=== PATIENT | female | born 1935 | race Caucasian/White ===

== ENCOUNTER 2017-07-28 22:57 | Inpatient (IN) | payer OTHER ==
[~2017-07-28] VITALS: Ht 165.1 cm; Wt 45.5 kg
[~2017-07-28 22:57] MED LIST: ACET325 PO; ALBU2.5V5 INH; ALBU3IS INH; ALL DAY ALLERGY10 M1 PO; AMIT50; ASPI325 PO; Advair Hfa 230-12 GM INH; Augmentin 875-1 EACH PO; Bisac-Evac10 MG PR; CHOL10002 PO; CLOP75 PO; DOC250 PO; DULERA 200 MCG/13 GM INH; FISH1000 PO; FOLI400 PO; GAVILAX17 GM PO; HTN MED; K-Dur10 MEQ PO; LANOXIN125 MCG PO; LEVO750 PO; LORA1 PO; LOVA40 PO; Lasix20 MG PO; Loperamide2 MG PO; METO100 PO; METO50 PO; MIRALAX17 GM PO; MIRT15 PO; MS Contin15 MG PO; NITR.4SL SL; PANT40 PO; PROM25 PO; RISP.25 PO; ROXICODONE5 MG PO; SENN187 PO; SERT50 PO; STIOLTO RESPIMAT4 GM INH; Super B Comple150 MG PO; TORSE20 PO; TRAZ50 PO; Zofran Odt8 MG SL; [UNRECOGNIZED DRUG - OTHER]
[2017-07-28 23:10] LABS: BASOPHILS ABSOLUTE AUTO 0.04 K/mm3 (0.00-0.23); BASOPHILS PERCENT AUTO 0 % (0-2); EOSINOPHILS ABSOLUTE AUTO 0.15 K/mm3 (0.00-0.68); EOSINOPHILS PERCENT AUTO 1 % (0-6); Hematocrit 41.7 % (33.0-51.0); Hemoglobin 12.4 g/dL (11.5-16.0); IMMATURE GRAN ABSOLUTE AUTO 0.13 K/mm3 (0.00-0.10); IMMATURE GRAN PERCENT AUTO 1 % (0-1); LYMPHOCYTES ABSOLUTE AUTO 1.39 K/mm3 (0.84-5.20); LYMPHOCYTES PERCENT AUTO 8 % (21-46); MONOCYTES ABSOLUTE AUTO 0.66 K/mm3 (0.16-1.47); MONOCYTES PERCENT AUTO 4 % (4-13); Mean Corpuscular HGB 25.5 pg (26.0-34.0); Mean Corpuscular HGB Conc 29.7 g/dL (31.5-36.5); Mean Corpuscular Volume 86 fL (80-100); Mean Platelet Volume 9.7 fL (9.1-12.4); NEUTROPHILS ABSOLUTE AUTO 15.67 K/mm3 (1.96-9.15); NEUTROPHILS PERCENT AUTO 87 % (41-73); Platelet Count 360 K/mm3 (150-400); RDW Coefficient Variation 18.4 % (11.7-14.2); RDW Standard Deviation 58.3 fL (35.1-46.3); Red Blood Cell Count 4.86 M/mm3 (3.80-5.20); White Blood Cell Count 18.04 K/mm3 (4.00-11.30)
[2017-07-28 23:37] LABS: Influenza A Positive (NEGATIVE)
[2017-07-28 23:38] LABS: Influenza B Negative (NEGATIVE)
[2017-07-29 00:43] LABS: Base Excess Venous 1.7 mmol/L; PCO2 Venous 70.2 mmHg (38-42); PO2 Venous 49.9 mmHg (38-42); pH Blood Venous 7.23 (7.34-7.37)
[2017-07-29 01:16] LABS: Alanine Aminotransfer (ALT/SGP 18 U/L (12-78); Albumin, Blood 3.5 g/dL (3.4-5.0); Albumin/Globulin Ratio 0.8 (0.8-1.8); Alk Phos 121 U/L (50-136); Anion Gap 9 mmol/L (6-16); Aspartate Aminotrans (AST/SGOT 28 U/L (12-37); Bilirubin, Total 0.7 mg/dL (0.1-1.0); Blood Urea Nitrogen 23 mg/dL (8-24); Bun/Creatinine Ratio 28.1 (12.0-20.0); CO2, Blood 30 mmol/L (21-32); Calcium, Blood 9.1 mg/dL (8.5-10.1); Chloride, Blood 103 mmol/L (98-108); Creatinine, Blood 0.82 mg/dL (0.40-1.00); Globulin, Blood 4.2 g/dL (2.2-4.0); Glomerular Filtration Rate >60 (60-); Glucose, Blood 172 mg/dL (70-99); Potassium, Blood 3.9 mmol/L (3.5-5.5); Sodium, Blood 142 mmol/L (136-145); Total Protein, Blood 7.7 g/dL (6.4-8.2)
[2017-07-29 01:19] LABS: Troponin I 0.559 ng/mL (0.000-0.040)
[2017-07-29 01:38] LABS: Magnesium, Blood 4.4 mg/dL (1.6-2.4)
[2017-07-29 04:16] LABS: PCO2 Arterial 60.1 mmHg (35-45); PO2 Arterial 89.1 mmHg (80-100); pH Blood Arterial 7.29 (7.35-7.45)
[2017-07-29] MEDS ORDERED: MORP20L PO (09:04)
[2017-07-29] MEDS ORDERED: CALCIUM ANTACI200 MG PO (09:39)
[2017-07-29] MEDS ORDERED: HYDCOR2.5C PR (09:44)
[2017-07-29] MEDS ORDERED: HYOS.125 SL (09:47)
[2017-07-29] MEDS ORDERED: LOPE2C PO (09:48)
[2017-07-29] MEDS ORDERED: MIRALAX17 GM PO (09:50)
[2017-07-30 07:54] LABS: Source, Urine Clean Catch
[2017-07-30 08:10] LABS: Bilirubin, Urine Neg (Neg); Blood, Urine 1+ (Neg); Glucose Qualitative, Urine Neg (Neg); Ketones, Urine Neg (Neg); Leukocyte Esterase, Urine 1+ (Neg); Nitrite, Urine Neg (Neg); Protein, Urine 2+ (Neg); Specific Gravity, Urine 1.025 (1.003-1.022); Urobilinogen, Urine NORM (Normal)
[2017-07-30 08:21] LABS: Appearance, Urine Clear (Clear); Color, Urine Yellow (P-Yellow)
[2017-07-30 08:23] LABS: Bacteria Few /hpf; Red Blood Cells, Urine 0-2 /hpf (0-2); Squamous Epithelial Cells Mod /hpf (Few)
[2017-07-30 08:49] LABS: BASOPHILS ABSOLUTE AUTO 0.01 K/mm3 (0.00-0.23); BASOPHILS PERCENT AUTO 0 % (0-2); EOSINOPHILS PERCENT AUTO 0 % (0-6); Hematocrit 36.6 % (33.0-51.0); Hemoglobin 10.9 g/dL (11.5-16.0); IMMATURE GRAN ABSOLUTE AUTO 0.04 K/mm3 (0.00-0.10); IMMATURE GRAN PERCENT AUTO 0 % (0-1); LYMPHOCYTES PERCENT AUTO 7 % (21-46); MONOCYTES ABSOLUTE AUTO 0.54 K/mm3 (0.16-1.47); MONOCYTES PERCENT AUTO 4 % (4-13); Mean Corpuscular HGB 25.5 pg (26.0-34.0); Mean Corpuscular HGB Conc 29.8 g/dL (31.5-36.5); Mean Corpuscular Volume 86 fL (80-100); Mean Platelet Volume 9.9 fL (9.1-12.4); NEUTROPHILS ABSOLUTE AUTO 11.25 K/mm3 (1.96-9.15); NEUTROPHILS PERCENT AUTO 88 % (41-73); Platelet Count 262 K/mm3 (150-400); RDW Coefficient Variation 18.3 % (11.7-14.2); RDW Standard Deviation 57.7 fL (35.1-46.3); Red Blood Cell Count 4.27 M/mm3 (3.80-5.20); White Blood Cell Count 12.74 K/mm3 (4.00-11.30)
[2017-07-30 08:55] LABS: Bun/Creatinine Ratio 45.2 (12.0-20.0); Calcium, Blood 8.8 mg/dL (8.5-10.1); Creatinine, Blood 0.97 mg/dL (0.40-1.00); Potassium, Blood 4.9 mmol/L (3.5-5.5)
[2017-08-02] MEDS ORDERED: Tamiflu30 MG PO (13:32)
[2017-08-02] MEDS ORDERED: LEVFLO500 PO (13:33)
[2018-06-27] MEDS ORDERED: ASPI81CH PO (12:17)
[2018-06-27] MEDS ORDERED: ALBU90OI INH (12:51)
[2018-06-27] MEDS ORDERED: ONDA4 PO (12:52)
[2018-06-27] MEDS ORDERED: BENEFIBER1 EAC1 PO (12:53)
[2018-06-27] MEDS ORDERED: NITR.4SL SL (14:17)
[2018-06-27] MEDS ORDERED: ACET325 PO (14:17)
[2018-06-27] MEDS ORDERED: LOPE2C PO (14:18)
[2018-06-28] MEDS ORDERED: FURO20 PO (14:10)
[2018-06-28] MEDS ORDERED: Micro-K10 MEQ PO (14:13)
[2018-06-28] MEDS ORDERED: LEVFLO500 PO (14:16)
[2018-06-28] MEDS ORDERED: PRED20 PO (14:17)
== END 2017-08-02 16:24 | disposition home health service (06) | DRG 871 ==
LOC: ER 22:57 → PCU 07-29 01:23 → ERHOLD 07-29 01:23 → ICUW 07-29 08:21 → PCU 07-30 07:51
PROVIDERS: Emergency Medicine; Family Medicine; Internal Medicine
PROC: 5A09357 Assistance with Respiratory Ventilation, Less than 24 Consecutive Hours, Continuous Positive Airway Pressure (ICD-10-PCS; principal; 2017-07-29)
DX: A41.9 Sepsis, unspecified organism (principal); J96.21 Acute and chronic respiratory failure with hypoxia; I21.A1 Myocardial infarction type 2; I50.33 Acute on chronic diastolic (congestive) heart failure; J10.01 Influenza due to other identified influenza virus with the same other identified influenza virus pneumonia; J96.22 Acute and chronic respiratory failure with hypercapnia; E87.2 Acidosis; R65.20 Severe sepsis without septic shock; I25.119 Atherosclerotic heart disease of native coronary artery with unspecified angina pectoris; I11.0 Hypertensive heart disease with heart failure; E11.9 Type 2 diabetes mellitus without complications; I48.91 Unspecified atrial fibrillation; Z51.5 Encounter for palliative care; R91.8 Other nonspecific abnormal finding of lung field; E78.5 Hyperlipidemia, unspecified; Z66 Do not resuscitate; Z99.81 Dependence on supplemental oxygen; Z95.5 Presence of coronary angioplasty implant and graft; Z88.5 Allergy status to narcotic agent; Z88.8 Allergy status to other drugs, medicaments and biological substances; Z79.02 Long term (current) use of antithrombotics/antiplatelets; Z79.82 Long term (current) use of aspirin; Z79.899 Other long term (current) drug therapy; Z87.891 Personal history of nicotine dependence
CPT/HCPCS: 36415; 36600; 71045; 80048; 80053; 81001; 82803; 83605; 83735; 83880; 84484; 85025; 87040; 87070; 87086; 87205; 87804; 93005; 93010; 94640; 94645; 94660; 94667; 94760; 94762; 96365; 96367; 96375; 99285; J1940; J1956; J2930; J3475; J3480; J7605

== ENCOUNTER → 2017-08-24 | Outpatient (CLI) | payer OTHER ==
[~2017-08-24] MED LIST changes: +ALBU90OI INH; +ASPI81CH PO; +BENEFIBER1 EAC1 PO; +CALCIUM ANTACI200 MG PO; +CEFD300 PO; +FURO20 PO; +HYDCOR2.5C PR; +HYDR1TAB94 PO; +HYOS.125 SL; +Ipratr-Albuterol3 ML INH; +LEVFLO500 PO; +LIDOCAINE-HC 3-17 GM RC; +LOPE2C PO; +MORP20L PO; +Micro-K10 MEQ PO; +Milk Of Ma400 MG/5 M PO; +ONDA4 PO; +PRED20 PO; +Tamiflu30 MG PO
== END | disposition home or self-care (01) ==
LOC: OLS 15:34
DX: S81.802A Unspecified open wound, left lower leg, initial encounter (principal)
CPT/HCPCS: 87070; 87075; 87077; 87147; 87186; 87205

== ENCOUNTER → 2017-09-14 | Outpatient (CLI) | payer OTHER | LOC: LAB EV 11:30 | DX: L98.9 Disorder of the skin and subcutaneous tissue, unspecified (principal) | CPT/HCPCS: 87070; 87205 ==

== ENCOUNTER 2017-10-10 00:38 | Emergency (ER) | payer OTHER ==
[~2017-10-10] VITALS: Ht 149.9 cm; Wt 45.4 kg
[~2017-10-10 00:38] MED LIST changes: -ALBU90OI INH; -ASPI81CH PO; -BENEFIBER1 EAC1 PO; -CEFD300 PO; -FURO20 PO; -HYDR1TAB94 PO; -Ipratr-Albuterol3 ML INH; -LIDOCAINE-HC 3-17 GM RC; -Micro-K10 MEQ PO; -Milk Of Ma400 MG/5 M PO; -ONDA4 PO; -PRED20 PO
[2017-10-10 02:57] LABS: Hematocrit 38.5 % (33.0-51.0); Hemoglobin 11.4 g/dL (11.5-16.0); Mean Corpuscular HGB 24.1 pg (26.0-34.0); Mean Corpuscular HGB Conc 29.6 g/dL (31.5-36.5); Mean Corpuscular Volume 81 fL (80-100); Mean Platelet Volume 9.7 fL (9.1-12.4); Platelet Count 285 K/mm3 (150-400); RDW Coefficient Variation 19.1 % (11.7-14.2); RDW Standard Deviation 56.7 fL (35.1-46.3); Red Blood Cell Count 4.74 M/mm3 (3.80-5.20); White Blood Cell Count 9.85 K/mm3 (4.00-11.30)
[2017-10-10 03:19] LABS: BAND PERCENT MAN 10 % (0-8); BASOPHILS ABSOLUTE MAN 0.09 K/mm3 (0.00-0.23); BASOPHILS PERCENT MAN 1 % (0-2); EOSINOPHILS ABSOLUTE MAN 0.19 K/mm3 (0.00-0.68); EOSINOPHILS PERCENT MAN 2 % (0-6); LYMPHOCYTES ABSOLUTE MAN 0.98 K/mm3 (0.84-5.20); LYMPHOCYTES PERCENT MAN 10 % (21-46); MONOCYTES ABSOLUTE MAN 0.68 K/mm3 (0.16-1.47); MONOCYTES PERCENT MAN 7 % (4-13); MYELOCYTE ABSOLUTE MAN 0.09 K/mm3 (0.00-0.00); MYELOCYTE PERCENT MAN 1 % (0-0); NEUTROPHILS ABSOLUTE MAN 7.78 K/mm3 (1.96-9.15); SEG NEUTROPHILS PERCENT MAN 69 % (41-73); TOTAL CELLS COUNTED 100
[2017-10-10 03:20] LABS: Alanine Aminotransfer (ALT/SGP 13 U/L (12-78); Albumin, Blood 3.1 g/dL (3.4-5.0); Albumin/Globulin Ratio 0.6 (0.8-1.8); Alk Phos 110 U/L (50-136); Anion Gap 5 mmol/L (6-16); Aspartate Aminotrans (AST/SGOT 18 U/L (12-37); Bilirubin, Total 0.5 mg/dL (0.1-1.0); Blood Urea Nitrogen 21 mg/dL (8-24); Bun/Creatinine Ratio 31.2 (12.0-20.0); CO2, Blood 28 mmol/L (21-32); Calcium, Blood 8.9 mg/dL (8.5-10.1); Chloride, Blood 104 mmol/L (98-108); Creatinine, Blood 0.67 mg/dL (0.40-1.00); Globulin, Blood 5.1 g/dL (2.2-4.0); Glomerular Filtration Rate >60 (60-); Glucose, Blood 95 mg/dL (70-99); Potassium, Blood 4.4 mmol/L (3.5-5.5); Sodium, Blood 137 mmol/L (136-145); Total Protein, Blood 8.2 g/dL (6.4-8.2); Troponin I <0.015 ng/mL (0.000-0.040)
[2018-06-27] MEDS ORDERED: ASPI81CH PO (12:17)
[2018-06-27] MEDS ORDERED: ALBU90OI INH (12:51)
[2018-06-27] MEDS ORDERED: ONDA4 PO (12:52)
[2018-06-27] MEDS ORDERED: BENEFIBER1 EAC1 PO (12:53)
[2018-06-27] MEDS ORDERED: NITR.4SL SL (14:17)
[2018-06-27] MEDS ORDERED: ACET325 PO (14:17)
[2018-06-27] MEDS ORDERED: LOPE2C PO (14:18)
[2018-06-28] MEDS ORDERED: FURO20 PO (14:10)
[2018-06-28] MEDS ORDERED: Micro-K10 MEQ PO (14:13)
[2018-06-28] MEDS ORDERED: LEVFLO500 PO (14:16)
[2018-06-28] MEDS ORDERED: PRED20 PO (14:17)
== END 2017-10-10 05:19 | disposition home or self-care (01) ==
LOC: ER 00:38
PROVIDERS: Emergency Medicine
DX: M54.6 Pain in thoracic spine (principal); Z88.5 Allergy status to narcotic agent; Z88.8 Allergy status to other drugs, medicaments and biological substances; Z79.899 Other long term (current) drug therapy; Z79.82 Long term (current) use of aspirin; Z79.2 Long term (current) use of antibiotics; I10 Essential (primary) hypertension; E78.00 Pure hypercholesterolemia, unspecified; E11.9 Type 2 diabetes mellitus without complications; Z87.891 Personal history of nicotine dependence
CPT/HCPCS: 71046; 80053; 84484; 85025; 93005; 93010; 96374; 96375; 99283; J2405; J3010

== ENCOUNTER 2017-10-16 10:48 | Emergency (ER) | payer OTHER ==
[~2017-10-16] VITALS: Ht 165.1 cm; Wt 45.4 kg
[2017-10-16] MEDS ORDERED: LIDOCAINE-HC 3-17 GM RC (11:02)
[2017-10-16] MEDS ORDERED: Ipratr-Albuterol3 ML INH (11:02)
[2017-10-16] MEDS ORDERED: MIRALAX17 GM PO (11:03)
[2017-10-16] MEDS ORDERED: Milk Of Ma400 MG/5 M PO (11:03)
[2017-10-16] MEDS ORDERED: LOPE2C PO (11:03)
[2017-10-16] MEDS ORDERED: HYDR1TAB94 PO (11:05)
[2017-10-16 12:05] LABS: BASOPHILS ABSOLUTE AUTO 0.05 K/mm3 (0.00-0.23); BASOPHILS PERCENT AUTO 0 % (0-2); EOSINOPHILS ABSOLUTE AUTO 0.05 K/mm3 (0.00-0.68); EOSINOPHILS PERCENT AUTO 0 % (0-6); Hematocrit 37.2 % (33.0-51.0); Hemoglobin 11.2 g/dL (11.5-16.0); IMMATURE GRAN ABSOLUTE AUTO 0.08 K/mm3 (0.00-0.10); IMMATURE GRAN PERCENT AUTO 1 % (0-1); LYMPHOCYTES ABSOLUTE AUTO 1.42 K/mm3 (0.84-5.20); LYMPHOCYTES PERCENT AUTO 13 % (21-46); MONOCYTES ABSOLUTE AUTO 0.78 K/mm3 (0.16-1.47); MONOCYTES PERCENT AUTO 7 % (4-13); Mean Corpuscular HGB 23.6 pg (26.0-34.0); Mean Corpuscular HGB Conc 30.1 g/dL (31.5-36.5); Mean Corpuscular Volume 79 fL (80-100); Mean Platelet Volume 9.1 fL (9.1-12.4); NEUTROPHILS ABSOLUTE AUTO 8.75 K/mm3 (1.96-9.15); NEUTROPHILS PERCENT AUTO 79 % (41-73); Platelet Count 373 K/mm3 (150-400); RDW Coefficient Variation 18.8 % (11.7-14.2); RDW Standard Deviation 53.6 fL (35.1-46.3); Red Blood Cell Count 4.74 M/mm3 (3.80-5.20); White Blood Cell Count 11.13 K/mm3 (4.00-11.30)
[2017-10-16 12:21] LABS: Alanine Aminotransfer (ALT/SGP 9 U/L (12-78); Albumin, Blood 2.9 g/dL (3.4-5.0); Albumin/Globulin Ratio 0.5 (0.8-1.8); Alk Phos 103 U/L (50-136); Anion Gap 9 mmol/L (6-16); Aspartate Aminotrans (AST/SGOT 9 U/L (12-37); Bilirubin, Total 0.9 mg/dL (0.1-1.0); Blood Urea Nitrogen 20 mg/dL (8-24); Bun/Creatinine Ratio 33.9 (12.0-20.0); CO2, Blood 28 mmol/L (21-32); Calcium, Blood 8.9 mg/dL (8.5-10.1); Chloride, Blood 99 mmol/L (98-108); Creatinine, Blood 0.59 mg/dL (0.40-1.00); Globulin, Blood 5.7 g/dL (2.2-4.0); Glomerular Filtration Rate >60 (60-); Glucose, Blood 107 mg/dL (70-99); Potassium, Blood 3.7 mmol/L (3.5-5.5); Sodium, Blood 136 mmol/L (136-145); Total Protein, Blood 8.6 g/dL (6.4-8.2); Troponin I 0.021 ng/mL (0.000-0.040)
[2018-06-27] MEDS ORDERED: ASPI81CH PO (12:17)
[2018-06-27] MEDS ORDERED: ALBU90OI INH (12:51)
[2018-06-27] MEDS ORDERED: ONDA4 PO (12:52)
[2018-06-27] MEDS ORDERED: BENEFIBER1 EAC1 PO (12:53)
[2018-06-27] MEDS ORDERED: ACET325 PO (14:17)
[2018-06-27] MEDS ORDERED: NITR.4SL SL (14:17)
[2018-06-27] MEDS ORDERED: LOPE2C PO (14:18)
[2018-06-28] MEDS ORDERED: FURO20 PO (14:10)
[2018-06-28] MEDS ORDERED: Micro-K10 MEQ PO (14:13)
[2018-06-28] MEDS ORDERED: LEVFLO500 PO (14:16)
[2018-06-28] MEDS ORDERED: PRED20 PO (14:17)
== END 2017-10-16 14:56 | disposition home or self-care (01) ==
LOC: ER 10:48
PROVIDERS: Physician Assistant
DX: M54.6 Pain in thoracic spine (principal); I10 Essential (primary) hypertension; E78.00 Pure hypercholesterolemia, unspecified; E11.9 Type 2 diabetes mellitus without complications; I48.91 Unspecified atrial fibrillation; Z88.5 Allergy status to narcotic agent; Z88.8 Allergy status to other drugs, medicaments and biological substances; Z79.899 Other long term (current) drug therapy; Z79.82 Long term (current) use of aspirin; Z87.891 Personal history of nicotine dependence
CPT/HCPCS: 36415; 71046; 80053; 84484; 85025; 93005; 93010; 99283

== ENCOUNTER 2017-11-14 10:02 | Emergency (ER) | payer OTHER ==
[~2017-11-14] VITALS: Ht 165.1 cm; Wt 43.5 kg
[~2017-11-14 10:02] MED LIST changes: -ALBU2.5V5 INH; +ALBU90OI6 INH; +HYDR1TAB94 PO; +Ipratr-Albuterol3 ML INH; +LIDOCAINE-HC 3-17 GM RC; +Milk Of Ma400 MG/5 M PO; +STIOLTO RESPIMAT4 GM IH; -STIOLTO RESPIMAT4 GM INH
[2017-11-14 11:00] LABS: BASOPHILS ABSOLUTE AUTO 0.06 K/mm3 (0.00-0.23); BASOPHILS PERCENT AUTO 1 % (0-2); EOSINOPHILS ABSOLUTE AUTO 0.24 K/mm3 (0.00-0.68); EOSINOPHILS PERCENT AUTO 4 % (0-6); Hematocrit 36.8 % (33.0-51.0); Hemoglobin 10.8 g/dL (11.5-16.0); IMMATURE GRAN ABSOLUTE AUTO 0.03 K/mm3 (0.00-0.10); IMMATURE GRAN PERCENT AUTO 1 % (0-1); LYMPHOCYTES ABSOLUTE AUTO 1.07 K/mm3 (0.84-5.20); LYMPHOCYTES PERCENT AUTO 20 % (21-46); MONOCYTES ABSOLUTE AUTO 0.34 K/mm3 (0.16-1.47); MONOCYTES PERCENT AUTO 6 % (4-13); Mean Corpuscular HGB 23.7 pg (26.0-34.0); Mean Corpuscular HGB Conc 29.3 g/dL (31.5-36.5); Mean Corpuscular Volume 81 fL (80-100); Mean Platelet Volume 9.3 fL (9.1-12.4); NEUTROPHILS ABSOLUTE AUTO 3.71 K/mm3 (1.96-9.15); NEUTROPHILS PERCENT AUTO 68 % (41-73); Platelet Count 298 K/mm3 (150-400); RDW Coefficient Variation 19.9 % (11.7-14.2); RDW Standard Deviation 57.4 fL (35.1-46.3); Red Blood Cell Count 4.56 M/mm3 (3.80-5.20); White Blood Cell Count 5.45 K/mm3 (4.00-11.30)
[2017-11-14 11:24] LABS: Alanine Aminotransfer (ALT/SGP 11 U/L (12-78); Albumin, Blood 2.8 g/dL (3.4-5.0); Albumin/Globulin Ratio 0.6 (0.8-1.8); Alk Phos 111 U/L (50-136); Anion Gap 6 mmol/L (6-16); Aspartate Aminotrans (AST/SGOT 12 U/L (12-37); Bilirubin, Total 0.6 mg/dL (0.1-1.0); Blood Urea Nitrogen 14 mg/dL (8-24); CO2, Blood 30 mmol/L (21-32); Calcium, Blood 8.7 mg/dL (8.5-10.1); Chloride, Blood 107 mmol/L (98-108); Creatinine, Blood 0.74 mg/dL (0.40-1.00); Globulin, Blood 4.7 g/dL (2.2-4.0); Glomerular Filtration Rate >60 (60-); Glucose, Blood 118 mg/dL (70-99); Potassium, Blood 3.8 mmol/L (3.5-5.5); Sodium, Blood 143 mmol/L (136-145); Total Protein, Blood 7.5 g/dL (6.4-8.2); Troponin I <0.015 ng/mL (0.000-0.040)
[2017-11-14 11:41] LABS: Digoxin (Lanoxin) 1.08 ug/mL (0.80-2.00)
[2017-11-14] MEDS ORDERED: LEVO750 PO (12:16)
== END 2017-11-14 12:24 | disposition home or self-care (01) ==
LOC: ER 10:02
PROVIDERS: Emergency Medicine
DX: J18.9 Pneumonia, unspecified organism (principal); I10 Essential (primary) hypertension; E11.9 Type 2 diabetes mellitus without complications; I48.91 Unspecified atrial fibrillation; E78.00 Pure hypercholesterolemia, unspecified; Z88.5 Allergy status to narcotic agent; Z88.8 Allergy status to other drugs, medicaments and biological substances; Z79.899 Other long term (current) drug therapy; Z79.82 Long term (current) use of aspirin; Z79.01 Long term (current) use of anticoagulants; Z87.891 Personal history of nicotine dependence
CPT/HCPCS: 36415; 71045; 80053; 80162; 83880; 84484; 85025; 93005; 93010; 99283

== ENCOUNTER 2018-07-08 17:53 | Emergency (ER) | payer OTHER ==
[~2018-07-08] VITALS: Ht 165.1 cm; Wt 47.6 kg
[~2018-07-08 17:53] MED LIST changes: +ALBU2.5V5 INH; +ALBU90OI INH; -ALBU90OI6 INH; +ASPI81CH PO; +BENEFIBER1 EAC1 PO; +FURO20 PO; +Micro-K10 MEQ PO; +ONDA4 PO; +PRED20 PO; -STIOLTO RESPIMAT4 GM IH; +STIOLTO RESPIMAT4 GM INH
[2018-07-08 19:52] LABS: BASOPHILS ABSOLUTE AUTO 0.09 K/mm3 (0.00-0.23); BASOPHILS PERCENT AUTO 1 % (0-2); EOSINOPHILS ABSOLUTE AUTO 0.19 K/mm3 (0.00-0.68); EOSINOPHILS PERCENT AUTO 1 % (0-6); Hematocrit 43.7 % (33.0-51.0); Hemoglobin 13.1 g/dL (11.5-16.0); IMMATURE GRAN ABSOLUTE AUTO 0.68 K/mm3 (0.00-0.10); IMMATURE GRAN PERCENT AUTO 4 % (0-1); LYMPHOCYTES PERCENT AUTO 4 % (21-46); MONOCYTES ABSOLUTE AUTO 0.66 K/mm3 (0.16-1.47); MONOCYTES PERCENT AUTO 4 % (4-13); Mean Corpuscular HGB 24.5 pg (26.0-34.0); Mean Corpuscular Volume 82 fL (80-100); Mean Platelet Volume 9.1 fL (9.1-12.4); NEUTROPHILS ABSOLUTE AUTO 13.47 K/mm3 (1.96-9.15); NEUTROPHILS PERCENT AUTO 86 % (41-73); Platelet Count 215 K/mm3 (150-400); RDW Coefficient Variation 21.5 % (11.7-14.2); Red Blood Cell Count 5.34 M/mm3 (3.80-5.20); White Blood Cell Count 15.69 K/mm3 (4.00-11.30)
[2018-07-08 20:22] LABS: Alanine Aminotransfer (ALT/SGP 16 U/L (12-78); Albumin, Blood 3.5 g/dL (3.4-5.0); Albumin/Globulin Ratio 0.8 (0.8-1.8); Alk Phos 86 U/L (50-136); Anion Gap 9 mmol/L (6-16); Aspartate Aminotrans (AST/SGOT 17 U/L (12-37); Bilirubin, Total 0.7 mg/dL (0.1-1.0); Blood Urea Nitrogen 27 mg/dL (8-24); CO2, Blood 28 mmol/L (21-32); Calcium, Blood 9.1 mg/dL (8.5-10.1); Chloride, Blood 99 mmol/L (98-108); Creatinine, Blood 0.77 mg/dL (0.40-1.00); Globulin, Blood 4.2 g/dL (2.2-4.0); Glomerular Filtration Rate >60 (60-); Glucose, Blood 196 mg/dL (70-99); Potassium, Blood 4.5 mmol/L (3.5-5.5); Sodium, Blood 136 mmol/L (136-145); Total Protein, Blood 7.7 g/dL (6.4-8.2); Troponin I <0.015 ng/mL (0.000-0.040)
[2018-07-08] MEDS ORDERED: CEFD300 PO ×2 (21:06→21:52)
== END 2018-07-08 22:00 | disposition home or self-care (01) ==
LOC: ER 17:53
PROVIDERS: Emergency Medicine
DX: J18.1 Lobar pneumonia, unspecified organism (principal); I10 Essential (primary) hypertension; E11.9 Type 2 diabetes mellitus without complications; E78.00 Pure hypercholesterolemia, unspecified; I48.91 Unspecified atrial fibrillation; Z88.2 Allergy status to sulfonamides; Z88.5 Allergy status to narcotic agent; Z88.8 Allergy status to other drugs, medicaments and biological substances; Z79.899 Other long term (current) drug therapy; Z79.82 Long term (current) use of aspirin; Z79.01 Long term (current) use of anticoagulants
CPT/HCPCS: 36415; 71046; 80053; 83880; 84484; 85025; 93005; 93010; 94640; 96365; 99285-25; J0696